=== PATIENT | female | born 1950 | race Two or more races ===

== ENCOUNTER 2019-01-22 09:30 | Outpatient (CLI) | payer MEDICARE, BC | END 2019-01-22 23:59 | disposition home or self-care (01) | LOC: WOU 09:30 | PROVIDERS: ATTEND Podiatrist Foot & Ankle Surgery | DX: M21.612 Bunion of left foot (principal); M21.611 Bunion of right foot; M20.42 Other hammer toe(s) (acquired), left foot; M20.41 Other hammer toe(s) (acquired), right foot | CPT/HCPCS: G0463 ==